=== PATIENT | female | born 1980 | race Caucasian/White ===

== ENCOUNTER 2022-05-06 13:53 | Outpatient (NON) | payer BC, SELFPAY | END 2022-05-06 13:54 | disposition home or self-care (01) | LOC: ANHLAB 13:54 | PROVIDERS: PCP Internal Medicine; Visit Provider Nurse Practitioner | DX: C44.41 Basal cell carcinoma of skin of scalp and neck (principal) | CPT/HCPCS: 88305 ==

== ENCOUNTER 2022-06-02 13:31 | Outpatient (NON) | payer BC, SELFPAY | END 2022-06-02 13:32 | disposition home or self-care (01) | LOC: ANHLAB 13:32 | PROVIDERS: PCP Internal Medicine; Visit Provider Nurse Practitioner | DX: C44.41 Basal cell carcinoma of skin of scalp and neck (principal) | CPT/HCPCS: 88305; 88331 ==

== ENCOUNTER 2023-05-07 16:17 | Outpatient (NON) | payer BC, SELFPAY | END 2023-05-07 16:18 | disposition home or self-care (01) | LOC: ANHLAB 16:19 | PROVIDERS: PCP Internal Medicine; Visit Provider Nurse Practitioner | DX: D48.5 Neoplasm of uncertain behavior of skin (principal) | CPT/HCPCS: 88305 ==